=== PATIENT | female | born 1935 | race Caucasian/White ===

== ENCOUNTER 2021-07-22 10:27 | Inpatient (IN) ==
[2021-07-22] MEDS ORDERED: Ipratropium/Albuterol Neb 3 ML IH PRN (14:49)
[2021-07-22] MEDS ORDERED: Acetaminophen 325 MG TABLET PO PRN (14:52)
[2021-07-22] MEDS: Gabapentin 100 MG CAPSULE PO SCH ×2 (16:37→20:25)
[2021-07-22] MEDS: Melatonin 3 MG TABLET PO SCH (20:25)
[2021-07-22] MEDS: Cefdinir 300 MG CAPSULE PO SCH (20:25)
[2021-07-23 07:26] LABS: Basophils % 0.3 %; Eosinophils # 0.2 K/mcL (0.0-0.6); Eosinophils % 1.6 %; Hematocrit 29.9 % (35.3-44.9); Hemoglobin 9.3 g/dL (11.5-15.4); Immature Granulocytes % 1.7 % (0-4); Lymphocytes # 1.3 K/mcL (0.6-4.6); Mean Corpuscular HGB Conc 31.1 g/dL (31.6-35.5); Mean Corpuscular Hemoglobin 27.1 pg (28.0-33.3); Mean Corpuscular Volume 87.2 fL (83.0-100.0); Monocytes # 0.8 K/mcL (0.0-1.3); Monocytes % 7.7 %; Neutrophils # 7.5 K/mcL (1.6-8.9); Platelet Count 443 K/mcL (140-400); Red Blood Count 3.43 M/mcL (3.82-4.97); Segmented Neutrophils % 75.7 %; White Blood Count 9.9 K/mcL (4.3-11.1)
[2021-07-23 08:21] LABS: BUN/Creatinine Ratio 39 (6-26); Blood Urea Nitrogen 27 mg/dL (8-23); Carbon Dioxide 30 mEq/L (23-29); Chloride 101 mEq/L (98-107); Glucose 116 mg/dL (70-105); Osmolality,Calculated 288 (280-300); Potassium 4.3 mEq/L (3.5-5.1); Sodium 136 mEq/L (136-145); eGFR For African Americans > 60 (> 60); eGFR For Non-African Americans > 60 (> 60)
[2021-07-23] MEDS ORDERED: NON-FORMULARY MEDICATION 1 EACH EACH (Mirabegron [Myrbetriq] 50 MG Tab.Er.24h) PO SCH (09:00)
[2021-07-23] MEDS: Cefdinir 300 MG CAPSULE PO SCH ×2 (09:19→21:05)
[2021-07-23] MEDS: Azithromycin 250 MG TABLET PO SCH (09:19)
[2021-07-23] MEDS: *HR* Rivaroxaban 15 MG TABLET PO SCH (09:20)
[2021-07-23] MEDS: Multivit/Ca/Min/Fe/FA 1 TAB TABLET PO SCH (09:20)
[2021-07-23] MEDS: Gabapentin 100 MG CAPSULE PO SCH ×3 (09:20→21:05)
[2021-07-23] MEDS: DilTIAZem CD (24hr) 120 MG CAP.ER.24H PO SCH (09:20)
[2021-07-23] MEDS: Magnesium Oxide 400 MG TABLET PO SCH (09:20)
[2021-07-23] MEDS: Melatonin 3 MG TABLET PO SCH (21:05)
[2021-07-24] MEDS: *HR* Rivaroxaban 15 MG TABLET PO SCH (10:14)
[2021-07-24] MEDS: Gabapentin 100 MG CAPSULE PO SCH ×3 (10:15→21:46)
[2021-07-24] MEDS: Magnesium Oxide 400 MG TABLET PO SCH (10:15)
[2021-07-24] MEDS: DilTIAZem CD (24hr) 120 MG CAP.ER.24H PO SCH (10:15)
[2021-07-24] MEDS: Cefdinir 300 MG CAPSULE PO SCH ×2 (10:15→21:46)
[2021-07-24] MEDS: Multivit/Ca/Min/Fe/FA 1 TAB TABLET PO SCH (10:15)
[2021-07-24] MEDS: Azithromycin 250 MG TABLET PO SCH (10:15)
[2021-07-24] MEDS: polyethylene glycoL 3350 17 GM POWD.PACK PO SCH (10:33)
[2021-07-24] MEDS: Melatonin 3 MG TABLET PO SCH (21:46)
[2021-07-25] MEDS: *HR* Rivaroxaban 15 MG TABLET PO SCH (08:44)
[2021-07-25] MEDS: polyethylene glycoL 3350 17 GM POWD.PACK PO SCH (08:45)
[2021-07-25] MEDS: Azithromycin 250 MG TABLET PO SCH (08:45)
[2021-07-25] MEDS: DilTIAZem CD (24hr) 120 MG CAP.ER.24H PO SCH (08:45)
[2021-07-25] MEDS: Gabapentin 100 MG CAPSULE PO SCH ×3 (08:45→21:31)
[2021-07-25] MEDS: Multivit/Ca/Min/Fe/FA 1 TAB TABLET PO SCH (08:45)
[2021-07-25] MEDS: Magnesium Oxide 400 MG TABLET PO SCH (08:45)
[2021-07-25] MEDS: Cefdinir 300 MG CAPSULE PO SCH ×2 (08:46→21:31)
[2021-07-25] MEDS: Melatonin 3 MG TABLET PO SCH (21:30)
[2021-07-26] MEDS: polyethylene glycoL 3350 17 GM POWD.PACK PO SCH (10:37)
[2021-07-26] MEDS: Gabapentin 100 MG CAPSULE PO SCH ×3 (10:38→21:19)
[2021-07-26] MEDS: *HR* Rivaroxaban 15 MG TABLET PO SCH (10:38)
[2021-07-26] MEDS: Multivit/Ca/Min/Fe/FA 1 TAB TABLET PO SCH (10:38)
[2021-07-26] MEDS: Magnesium Oxide 400 MG TABLET PO SCH (10:38)
[2021-07-26] MEDS: DilTIAZem CD (24hr) 120 MG CAP.ER.24H PO SCH (10:38)
[2021-07-26] MEDS: Cefdinir 300 MG CAPSULE PO SCH ×2 (10:38→21:19)
[2021-07-26] MEDS: Melatonin 3 MG TABLET PO SCH (21:19)
[2021-07-27] MEDS ORDERED: Benzonatate 100 MG CAPSULE PO PRN (01:27)
[2021-07-27] MEDS: *HR* Rivaroxaban 15 MG TABLET PO SCH (10:56)
[2021-07-27] MEDS: Multivit/Ca/Min/Fe/FA 1 TAB TABLET PO SCH (10:57)
[2021-07-27] MEDS: Magnesium Oxide 400 MG TABLET PO SCH (10:57)
[2021-07-27] MEDS: DilTIAZem CD (24hr) 120 MG CAP.ER.24H PO SCH (10:57)
[2021-07-27] MEDS: polyethylene glycoL 3350 17 GM POWD.PACK PO SCH (10:57)
[2021-07-27] MEDS: Gabapentin 100 MG CAPSULE PO SCH ×3 (10:57→20:59)
[2021-07-27] MEDS: Melatonin 3 MG TABLET PO SCH (20:59)
[2021-07-28] MEDS: Multivit/Ca/Min/Fe/FA 1 TAB TABLET PO SCH (10:21)
[2021-07-28] MEDS: *HR* Rivaroxaban 15 MG TABLET PO SCH (10:21)
[2021-07-28] MEDS: Magnesium Oxide 400 MG TABLET PO SCH (10:22)
[2021-07-28] MEDS: Gabapentin 100 MG CAPSULE PO SCH ×3 (10:22→21:40)
[2021-07-28] MEDS: DilTIAZem CD (24hr) 120 MG CAP.ER.24H PO SCH (10:22)
[2021-07-28] MEDS: Sennosides/Docusate Sodium TABLET PO SCH ×2 (10:27→21:40)
[2021-07-28] MEDS: polyethylene glycoL 3350 17 GM POWD.PACK PO SCH (16:37)
[2021-07-28] MEDS: Artificial Tears SOLN 15 ML BOTTLE BOTH EYES PRN (17:52)
[2021-07-28] MEDS: Melatonin 3 MG TABLET PO SCH (21:40)
[2021-07-29] MEDS: Magnesium Oxide 400 MG TABLET PO SCH (11:23)
[2021-07-29] MEDS: Sennosides/Docusate Sodium TABLET PO SCH ×2 (11:23→21:08)
[2021-07-29] MEDS: DilTIAZem CD (24hr) 120 MG CAP.ER.24H PO SCH (11:23)
[2021-07-29] MEDS: Multivit/Ca/Min/Fe/FA 1 TAB TABLET PO SCH (11:24)
[2021-07-29] MEDS: Gabapentin 100 MG CAPSULE PO SCH ×3 (11:24→21:07)
[2021-07-29] MEDS: *HR* Rivaroxaban 15 MG TABLET PO SCH (11:24)
[2021-07-29] MEDS: Artificial Tears SOLN 15 ML BOTTLE BOTH EYES PRN (16:32)
[2021-07-29] MEDS: Acetaminophen 325 MG TABLET PO PRN (21:07)
[2021-07-29] MEDS: Melatonin 3 MG TABLET PO SCH (21:08)
[2021-07-30 09:11] LABS: Hematocrit 28.9 % (35.3-44.9); Hemoglobin 8.7 g/dL (11.5-15.4); Mean Corpuscular HGB Conc 30.1 g/dL (31.6-35.5); Mean Corpuscular Hemoglobin 27.1 pg (28.0-33.3); Mean Platelet Volume 8.8 fL (9.4-12.4); Platelet Count 532 K/mcL (140-400); Red Blood Count 3.21 M/mcL (3.82-4.97); Red Cell Distribution Width 14.4 % (11.5-14.5)
[2021-07-30] MEDS: Gabapentin 100 MG CAPSULE PO SCH ×3 (09:40→22:36)
[2021-07-30] MEDS: DilTIAZem CD (24hr) 120 MG CAP.ER.24H PO SCH (09:40)
[2021-07-30] MEDS: Magnesium Oxide 400 MG TABLET PO SCH (09:40)
[2021-07-30] MEDS: Sennosides/Docusate Sodium TABLET PO SCH ×2 (09:40→22:36)
[2021-07-30] MEDS: Multivit/Ca/Min/Fe/FA 1 TAB TABLET PO SCH (09:41)
[2021-07-30] MEDS: *HR* Rivaroxaban 15 MG TABLET PO SCH (09:41)
[2021-07-30 10:11] LABS: BUN/Creatinine Ratio 29 (6-26); Blood Urea Nitrogen 25 mg/dL (8-23); Calcium 9.5 mg/dL (8.6-10.3); Carbon Dioxide 27 mEq/L (23-29); Chloride 99 mEq/L (98-107); Glucose 233 mg/dL (70-105); Osmolality,Calculated 292 (280-300); Potassium 4.5 mEq/L (3.5-5.1); Sodium 135 mEq/L (136-145); eGFR For African Americans > 60 (> 60); eGFR For Non-African Americans > 60 (> 60)
[2021-07-30] MEDS: Acetaminophen 325 MG TABLET PO PRN (11:05)
[2021-07-30] MEDS: Melatonin 3 MG TABLET PO SCH (22:36)
[2021-07-31] MEDS: Sennosides/Docusate Sodium TABLET PO SCH ×2 (10:18→21:37)
[2021-07-31] MEDS: *HR* Rivaroxaban 15 MG TABLET PO SCH (10:19)
[2021-07-31] MEDS: Gabapentin 100 MG CAPSULE PO SCH ×3 (10:19→21:36)
[2021-07-31] MEDS: Magnesium Oxide 400 MG TABLET PO SCH (10:19)
[2021-07-31] MEDS: Multivit/Ca/Min/Fe/FA 1 TAB TABLET PO SCH (10:19)
[2021-07-31] MEDS: DilTIAZem CD (24hr) 120 MG CAP.ER.24H PO SCH (10:19)
[2021-07-31] MEDS: Acetaminophen 325 MG TABLET PO PRN (15:42)
[2021-07-31] MEDS: Megestrol Acetate 400 MG/10 ML UDC PO SCH (18:40)
[2021-07-31] MEDS: Artificial Tears SOLN 15 ML BOTTLE BOTH EYES PRN (18:59)
[2021-07-31] MEDS: Melatonin 3 MG TABLET PO SCH (21:36)
[2021-08-01] MEDS: Magnesium Oxide 400 MG TABLET PO SCH (08:59)
[2021-08-01] MEDS: *HR* Rivaroxaban 15 MG TABLET PO SCH (08:59)
[2021-08-01] MEDS: Multivit/Ca/Min/Fe/FA 1 TAB TABLET PO SCH (08:59)
[2021-08-01] MEDS: Sennosides/Docusate Sodium TABLET PO SCH ×2 (08:59→19:55)
[2021-08-01] MEDS: Megestrol Acetate 400 MG/10 ML UDC PO SCH (09:00)
[2021-08-01] MEDS: Gabapentin 100 MG CAPSULE PO SCH ×3 (09:00→19:54)
[2021-08-01] MEDS: DilTIAZem CD (24hr) 120 MG CAP.ER.24H PO SCH (09:00)
[2021-08-01] MEDS: Acetaminophen 325 MG TABLET PO PRN (10:51)
[2021-08-01] MEDS: Loratadine 10 MG TABLET PO SCH (14:34)
[2021-08-01] MEDS: Melatonin 3 MG TABLET PO SCH (19:54)
[2021-08-02] MEDS: *HR* Rivaroxaban 15 MG TABLET PO SCH (09:01)
[2021-08-02] MEDS: Multivit/Ca/Min/Fe/FA 1 TAB TABLET PO SCH (09:01)
[2021-08-02] MEDS: DilTIAZem CD (24hr) 120 MG CAP.ER.24H PO SCH (09:01)
[2021-08-02] MEDS: Sennosides/Docusate Sodium TABLET PO SCH ×2 (09:01→21:34)
[2021-08-02] MEDS: Megestrol Acetate 400 MG/10 ML UDC PO SCH (09:01)
[2021-08-02] MEDS: Magnesium Oxide 400 MG TABLET PO SCH (09:01)
[2021-08-02] MEDS: Loratadine 10 MG TABLET PO SCH (09:01)
[2021-08-02] MEDS: Gabapentin 100 MG CAPSULE PO SCH ×3 (09:01→21:34)
[2021-08-02] MEDS: Melatonin 3 MG TABLET PO SCH (21:34)
[2021-08-03] MEDS: Acetaminophen 325 MG TABLET PO PRN (05:49)
[2021-08-03 07:27] LABS: Basophils % 0.4 %; Eosinophils # 0.3 K/mcL (0.0-0.6); Eosinophils % 2.5 %; Hematocrit 23.5 % (35.3-44.9); Hemoglobin 7.1 g/dL (11.5-15.4); Immature Granulocytes % 1.5 % (0-4); Lymphocytes # 1.8 K/mcL (0.6-4.6); Lymphocytes % 16.9 %; Mean Corpuscular HGB Conc 30.2 g/dL (31.6-35.5); Mean Corpuscular Hemoglobin 25.9 pg (28.0-33.3); Mean Corpuscular Volume 85.8 fL (83.0-100.0); Monocytes # 1.2 K/mcL (0.0-1.3); Monocytes % 11.1 %; Platelet Count 421 K/mcL (140-400); Red Blood Count 2.74 M/mcL (3.82-4.97); Red Cell Distribution Width 14.7 % (11.5-14.5); Segmented Neutrophils % 67.6 %; White Blood Count 10.4 K/mcL (4.3-11.1)
[2021-08-03 07:37] LABS: BUN/Creatinine Ratio 23 (6-26); Blood Urea Nitrogen 19 mg/dL (8-23); Calcium 8.8 mg/dL (8.6-10.3); Carbon Dioxide 28 mEq/L (23-29); Chloride 101 mEq/L (98-107); Glucose 88 mg/dL (70-105); Osmolality,Calculated 284 (280-300); Potassium 4.1 mEq/L (3.5-5.1); Sodium 136 mEq/L (136-145); eGFR For African Americans > 60 (> 60); eGFR For Non-African Americans > 60 (> 60)
[2021-08-03] MEDS ORDERED: 0.9 % Sodium Chloride 250 ML IVC SCH (08:30)
[2021-08-03] MEDS: Magnesium Oxide 400 MG TABLET PO SCH (09:07)
[2021-08-03] MEDS: *HR* Rivaroxaban 15 MG TABLET PO SCH (09:07)
[2021-08-03] MEDS: Megestrol Acetate 400 MG/10 ML UDC PO SCH (09:07)
[2021-08-03] MEDS: Gabapentin 100 MG CAPSULE PO SCH ×3 (09:07→20:19)
[2021-08-03] MEDS: Loratadine 10 MG TABLET PO SCH (09:07)
[2021-08-03] MEDS: Multivit/Ca/Min/Fe/FA 1 TAB TABLET PO SCH (09:07)
[2021-08-03] MEDS: Sennosides/Docusate Sodium TABLET PO SCH ×2 (09:07→20:18)
[2021-08-03] MEDS: DilTIAZem CD (24hr) 120 MG CAP.ER.24H PO SCH (09:08)
[2021-08-03 09:16] LABS: Hematocrit 26.8 % (35.3-44.9); Hemoglobin 8.1 g/dL (11.5-15.4)
[2021-08-03 13:35] LABS: Folate > 22.3 ng/mL (3.0-16.0); Vitamin B12 1000 pg/mL (250-1100)
[2021-08-03] MEDS ORDERED: Iron Sucrose Complex 200 MG in 0.9 % Sodium Chloride 100 ML IVPB SCH (16:00)
[2021-08-03] MEDS: Melatonin 3 MG TABLET PO SCH (20:19)
[2021-08-04 08:14] LABS: Hemoglobin 8.7 g/dL (11.5-15.4); Mean Corpuscular HGB Conc 31.1 g/dL (31.6-35.5); Mean Corpuscular Hemoglobin 26.4 pg (28.0-33.3); Mean Corpuscular Volume 84.8 fL (83.0-100.0); Mean Platelet Volume 8.8 fL (9.4-12.4); Platelet Count 428 K/mcL (140-400); Red Cell Distribution Width 14.8 % (11.5-14.5); White Blood Count 12.3 K/mcL (4.3-11.1)
[2021-08-04] MEDS: Sennosides/Docusate Sodium TABLET PO SCH ×2 (08:22→20:27)
[2021-08-04] MEDS: Loratadine 10 MG TABLET PO SCH (08:23)
[2021-08-04] MEDS: Gabapentin 100 MG CAPSULE PO SCH ×3 (08:23→20:27)
[2021-08-04] MEDS: Magnesium Oxide 400 MG TABLET PO SCH (08:23)
[2021-08-04] MEDS: Multivit/Ca/Min/Fe/FA 1 TAB TABLET PO SCH (08:23)
[2021-08-04] MEDS: Megestrol Acetate 400 MG/10 ML UDC PO SCH (08:24)
[2021-08-04] MEDS: DilTIAZem CD (24hr) 120 MG CAP.ER.24H PO SCH (08:24)
[2021-08-04] MEDS: Iron Sucrose Complex 200 MG in 0.9 % Sodium Chloride 100 ML IVPB SCH (12:59)
[2021-08-04] MEDS: Melatonin 3 MG TABLET PO SCH (20:27)
[2021-08-04] MEDS: Simethicone 80 MG TAB.CHEW PO PRN (20:27)
[2021-08-04] MEDS: Ondansetron ODT 4 MG TAB.RAPDIS SL PRN (22:06)
[2021-08-05] MEDS: Gabapentin 100 MG CAPSULE PO SCH ×3 (09:33→20:34)
[2021-08-05] MEDS: Sennosides/Docusate Sodium TABLET PO SCH ×2 (09:33→20:34)
[2021-08-05] MEDS: Multivit/Ca/Min/Fe/FA 1 TAB TABLET PO SCH (09:33)
[2021-08-05] MEDS: Loratadine 10 MG TABLET PO SCH (09:33)
[2021-08-05] MEDS: DilTIAZem CD (24hr) 180 MG CAP.ER.24H PO SCH (09:33)
[2021-08-05] MEDS: *HR* Rivaroxaban 15 MG TABLET PO SCH (09:34)
[2021-08-05] MEDS: Magnesium Oxide 400 MG TABLET PO SCH (09:34)
[2021-08-05] MEDS: Megestrol Acetate 400 MG/10 ML UDC PO SCH (09:36)
[2021-08-05] MEDS: Iron Sucrose Complex 200 MG in 0.9 % Sodium Chloride 100 ML IVPB SCH (16:08)
[2021-08-05] MEDS: Melatonin 3 MG TABLET PO SCH (20:34)
[2021-08-05] MEDS: Simethicone 80 MG TAB.CHEW PO PRN (20:39)
[2021-08-06] MEDS: Megestrol Acetate 400 MG/10 ML UDC PO SCH (08:43)
[2021-08-06] MEDS: Sennosides/Docusate Sodium TABLET PO SCH ×2 (08:43→21:57)
[2021-08-06] MEDS: Loratadine 10 MG TABLET PO SCH (08:44)
[2021-08-06] MEDS: DilTIAZem CD (24hr) 180 MG CAP.ER.24H PO SCH (08:44)
[2021-08-06] MEDS: Multivit/Ca/Min/Fe/FA 1 TAB TABLET PO SCH (08:44)
[2021-08-06] MEDS: *HR* Rivaroxaban 15 MG TABLET PO SCH (08:44)
[2021-08-06] MEDS: Gabapentin 100 MG CAPSULE PO SCH ×3 (08:44→21:57)
[2021-08-06] MEDS: Magnesium Oxide 400 MG TABLET PO SCH (08:45)
[2021-08-06] MEDS: Ipratropium/Albuterol Neb 3 ML IH SCH ×3 (11:02→20:42)
[2021-08-06] MEDS: Iron Sucrose Complex 200 MG in 0.9 % Sodium Chloride 100 ML IVPB SCH (12:21)
[2021-08-06] MEDS: predniSONE 20 MG TABLET PO SCH (12:21)
[2021-08-06] MEDS: Ondansetron ODT 4 MG TAB.RAPDIS SL PRN (18:51)
[2021-08-06] MEDS: Melatonin 3 MG TABLET PO SCH (21:56)
[2021-08-07] MEDS: Ipratropium/Albuterol Neb 3 ML IH SCH ×7 (00:10→23:50)
[2021-08-07 07:16] LABS: Hematocrit 25.4 % (35.3-44.9); Hemoglobin 7.6 g/dL (11.5-15.4); Mean Corpuscular HGB Conc 29.9 g/dL (31.6-35.5); Mean Corpuscular Hemoglobin 26.4 pg (28.0-33.3); Mean Corpuscular Volume 88.2 fL (83.0-100.0); Mean Platelet Volume 9.5 fL (9.4-12.4); Platelet Count 404 K/mcL (140-400); Red Blood Count 2.88 M/mcL (3.82-4.97); Red Cell Distribution Width 15.8 % (11.5-14.5); White Blood Count 19.4 K/mcL (4.3-11.1)
[2021-08-07] MEDS: Gabapentin 100 MG CAPSULE PO SCH ×3 (11:15→20:27)
[2021-08-07] MEDS: predniSONE 20 MG TABLET PO SCH (11:16)
[2021-08-07] MEDS: DilTIAZem CD (24hr) 180 MG CAP.ER.24H PO SCH (11:16)
[2021-08-07] MEDS: Sennosides/Docusate Sodium TABLET PO SCH ×2 (11:16→20:27)
[2021-08-07] MEDS: Megestrol Acetate 400 MG/10 ML UDC PO SCH (11:16)
[2021-08-07] MEDS: Loratadine 10 MG TABLET PO SCH (11:16)
[2021-08-07] MEDS: Multivit/Ca/Min/Fe/FA 1 TAB TABLET PO SCH (11:16)
[2021-08-07] MEDS: *HR* Rivaroxaban 15 MG TABLET PO SCH (11:16)
[2021-08-07] MEDS: Magnesium Oxide 400 MG TABLET PO SCH (11:16)
[2021-08-07] MEDS: Melatonin 3 MG TABLET PO SCH (20:27)
[2021-08-08] MEDS: Ipratropium/Albuterol Neb 3 ML IH SCH ×5 (04:17→20:05)
[2021-08-08 06:02] LABS: Hematocrit 23.3 % (35.3-44.9); Mean Corpuscular Hemoglobin 26.4 pg (28.0-33.3); Mean Corpuscular Volume 87.9 fL (83.0-100.0); Mean Platelet Volume 9.1 fL (9.4-12.4); Platelet Count 393 K/mcL (140-400); Red Blood Count 2.65 M/mcL (3.82-4.97); Red Cell Distribution Width 16.3 % (11.5-14.5); White Blood Count 19.2 K/mcL (4.3-11.1)
[2021-08-08] MEDS ORDERED: 0.9 % Sodium Chloride 250 ML ONE ×2 (09:55→10:35)
[2021-08-08] MEDS: Megestrol Acetate 400 MG/10 ML UDC PO SCH (10:55)
[2021-08-08] MEDS: DilTIAZem CD (24hr) 180 MG CAP.ER.24H PO SCH (10:55)
[2021-08-08] MEDS: Sennosides/Docusate Sodium TABLET PO SCH ×2 (10:55→22:23)
[2021-08-08] MEDS: Magnesium Oxide 400 MG TABLET PO SCH (10:55)
[2021-08-08] MEDS: Multivit/Ca/Min/Fe/FA 1 TAB TABLET PO SCH (10:55)
[2021-08-08] MEDS: Gabapentin 100 MG CAPSULE PO SCH ×3 (10:56→22:23)
[2021-08-08] MEDS: predniSONE 20 MG TABLET PO SCH (10:56)
[2021-08-08] MEDS: Loratadine 10 MG TABLET PO SCH (10:56)
[2021-08-08 21:54] LABS: Hematocrit 31.5 % (35.3-44.9); Hemoglobin 9.9 g/dL (11.5-15.4)
[2021-08-08] MEDS: Melatonin 3 MG TABLET PO SCH (22:22)
[2021-08-09] MEDS: Ipratropium/Albuterol Neb 3 ML IH SCH ×4 (00:05→11:30)
[2021-08-09 07:21] VITALS: TEMP 97.9
[2021-08-09] MEDS: Megestrol Acetate 400 MG/10 ML UDC PO SCH (10:03)
[2021-08-09] MEDS: Magnesium Oxide 400 MG TABLET PO SCH (10:04)
[2021-08-09] MEDS: Gabapentin 100 MG CAPSULE PO SCH ×2 (10:04→15:36)
[2021-08-09] MEDS: Sennosides/Docusate Sodium TABLET PO SCH (10:04)
[2021-08-09] MEDS: DilTIAZem CD (24hr) 180 MG CAP.ER.24H PO SCH (10:05)
[2021-08-09] MEDS: Loratadine 10 MG TABLET PO SCH (10:05)
[2021-08-09] MEDS: Multivit/Ca/Min/Fe/FA 1 TAB TABLET PO SCH (10:05)
[2021-08-09] MEDS ORDERED: Ipratropium/Albuterol Neb 3 ML IH PRN (11:42)
[2021-08-09 14:29] VITALS: BP 118/50; PULSE 63; RESP 16; O2SAT 98
== END 2021-08-09 16:05 | disposition home health service (06) | DRG 193 ==
LOC: INPPIK 16:14
PROVIDERS: ADMIT Family Medicine; ATTEND Family Medicine

== ENCOUNTER 2021-09-06 17:48 | Inpatient (IN) ==
[2021-09-06 22:17] LABS: Basophils # 0.1 K/mcL (0.0-0.2); Basophils % 0.6 %; Eosinophils # 0.1 K/mcL (0.0-0.6); Eosinophils % 0.9 %; Immature Granulocytes % 0.5 % (0-4); Lymphocytes # 2.5 K/mcL (0.6-4.6); Lymphocytes % 24.8 %; Mean Corpuscular Hemoglobin 26.1 pg (28.0-33.3); Mean Corpuscular Volume 89.9 fL (83.0-100.0); Mean Platelet Volume 9.9 fL (9.4-12.4); Monocytes # 0.6 K/mcL (0.0-1.3); Monocytes % 5.6 %; Neutrophils # 6.9 K/mcL (1.6-8.9); Platelet Count 314 K/mcL (140-400); Red Blood Count 3.45 M/mcL (3.82-4.97); Red Cell Distribution Width 18.6 % (11.5-14.5); Segmented Neutrophils % 67.6 %; White Blood Count 10.2 K/mcL (4.3-11.1)
[2021-09-06 22:29] LABS: BUN/Creatinine Ratio 19 (6-26); Blood Urea Nitrogen 19 mg/dL (8-23); Calcium 8.8 mg/dL (8.6-10.3); Carbon Dioxide 26 mEq/L (23-29); Chloride 107 mEq/L (98-107); Glucose 97 mg/dL (70-105); Osmolality,Calculated 294 (280-300); Potassium 4.6 mEq/L (3.5-5.1); Sodium 141 mEq/L (136-145); eGFR For African Americans > 60 (> 60); eGFR For Non-African Americans 52 (> 60)
[2021-09-06 22:45] LABS: Troponin I < 0.03 ng/mL (< 0.04)
[2021-09-06 23:25] LABS: Bilirubin,Urine Small (Negative); Blood,Urine Negative (Negative); Clarity,Urine Clear (Clear); Color,Urine Yellow (Yellow); Glucose,Urine (UA) Normal (Normal); Ketones,Urine Negative (Negative); Leukocyte Esterase,Urine Trace (Negative); Nitrite,Urine Negative (Negative); PH,Urine 7.5 pH Units (5.0-8.0); Protein,Urine Trace mg/dL (Neg-Trace); Specific Gravity,Urine 1.015 (1.010-1.025); Urobilinogen,Urine Normal (Normal)
[2021-09-07] MEDS ORDERED: 0.9 % Sodium Chloride 1,000 ML IV ONE ×2 (01:21→02:50)
[2021-09-07] MEDS: Piperacillin/Tazobactam 3.375 GM in 0.9 % Sodium Chloride Mini Bag 100 ML IVPB SCH ×3 (02:38→18:33)
[2021-09-07] MEDS ORDERED: Acetaminophen 325 MG TABLET PO PRN (08:55)
[2021-09-07] MEDS ORDERED: Ondansetron 4 MG/2 ML VIAL IVP PRN (08:55)
[2021-09-07] MEDS ORDERED: Naloxone 0.4 MG/ML INJ IVP PRN (08:55)
[2021-09-07] MEDS ORDERED: DilTIAZem CD (24hr) 120 MG CAP.ER.24H PO SCH (09:00)
[2021-09-07] MEDS: Gabapentin 100 MG CAPSULE PO SCH ×3 (10:20→20:26)
[2021-09-07] MEDS: Magnesium Oxide 400 MG TABLET PO SCH (10:20)
[2021-09-07] MEDS: Megestrol Acetate 400 MG/10 ML UDC PO SCH (10:26)
[2021-09-07] MEDS: Multivit/Ca/Min/Fe/FA 1 TAB TABLET PO SCH (10:35)
[2021-09-07] MEDS: Ipratropium/Albuterol Neb 3 ML IH SCH ×4 (11:32→23:30)
[2021-09-07] MEDS ORDERED: Acetaminophen 325 MG TABLET PO SCH (12:00)
[2021-09-07] MEDS ORDERED: DilTIAZem CD (24hr) 120 MG CAP.ER.24H PO ONE (12:45)
[2021-09-07] MEDS ORDERED: Nitroglycerin 0.4 MG TAB.SUBL SL PRN (12:53)
[2021-09-07] MEDS: Aspirin Enteric Coated 81 MG Tablet PO SCH (15:40)
[2021-09-07 16:53] LABS: Adenovirus Not Detected (Not Detect); Bordetella Pertussis Not Detected (Not Detect); Chlamydophila pneumoniae Not Detected (Not Detect); Coronavirus 229E Not Detected (Not Detect); Coronavirus HKU1 Not Detected (Not Detect); Coronavirus NL63 Not Detected (Not Detect); Coronavirus OC43 Not Detected (Not Detect); Human Metapneumovirus Not Detected (Not Detect); Human Rhinovirus/Enterovirus Not Detected (Not Detect); Influenza A Subtype 2009 H1 Not Detected (Not Detect); Influenza B Not Detected (Not Detect); Mycoplasma pneumoniae Not Detected (Not Detect); Parainfluenza Virus 1 Not Detected (Not Detect); Parainfluenza Virus 2 Not Detected (Not Detect); Parainfluenza Virus 3 Not Detected (Not Detect); Parainfluenza Virus 4 Not Detected (Not Detect); Respiratory Syncytial Virus Not Detected (Not Detect); SARS-CoV-2 Not Detected (Not Detect)
[2021-09-07] MEDS: Mirtazapine 15 MG TABLET PO SCH (20:25)
[2021-09-07] MEDS: Melatonin 3 MG TABLET PO SCH (20:25)
[2021-09-08] MEDS: Piperacillin/Tazobactam 3.375 GM in 0.9 % Sodium Chloride Mini Bag 100 ML IVPB SCH ×3 (02:02→17:21)
[2021-09-08] MEDS: Ipratropium/Albuterol Neb 3 ML IH SCH ×5 (04:14→20:35)
[2021-09-08 07:44] LABS: Hematocrit 27.9 % (35.3-44.9); Mean Corpuscular HGB Conc 28.7 g/dL (31.6-35.5); Mean Corpuscular Hemoglobin 25.8 pg (28.0-33.3); Mean Platelet Volume 10.2 fL (9.4-12.4); Platelet Count 262 K/mcL (140-400); Red Cell Distribution Width 18.7 % (11.5-14.5); White Blood Count 7.9 K/mcL (4.3-11.1)
[2021-09-08 07:50] LABS: BUN/Creatinine Ratio 19 (6-26); Blood Urea Nitrogen 20 mg/dL (8-23); Calcium 8.3 mg/dL (8.6-10.3); Carbon Dioxide 27 mEq/L (23-29); Chloride 107 mEq/L (98-107); Glucose 89 mg/dL (70-105); Magnesium 1.8 mg/dL (1.6-2.6); Osmolality,Calculated 292 (280-300); Potassium 3.9 mEq/L (3.5-5.1); Sodium 140 mEq/L (136-145); eGFR For African Americans > 60 (> 60); eGFR For Non-African Americans 50 (> 60)
[2021-09-08] MEDS: Gabapentin 100 MG CAPSULE PO SCH ×3 (08:01→20:26)
[2021-09-08] MEDS: Aspirin Enteric Coated 81 MG Tablet PO SCH (08:01)
[2021-09-08] MEDS: Magnesium Oxide 400 MG TABLET PO SCH (08:01)
[2021-09-08] MEDS: Megestrol Acetate 400 MG/10 ML UDC PO SCH (08:01)
[2021-09-08] MEDS: Multivit/Ca/Min/Fe/FA 1 TAB TABLET PO SCH (08:02)
[2021-09-08] MEDS: DilTIAZem CD (24hr) 120 MG CAP.ER.24H PO SCH (08:11)
[2021-09-08] MEDS: Furosemide 20 MG/2 ML VIAL IVP SCH (13:12)
[2021-09-08] MEDS: Mirtazapine 15 MG TABLET PO SCH (20:26)
[2021-09-08] MEDS: Melatonin 3 MG TABLET PO SCH (20:26)
[2021-09-09] MEDS: Ipratropium/Albuterol Neb 3 ML IH SCH ×6 (00:21→20:45)
[2021-09-09] MEDS: Piperacillin/Tazobactam 3.375 GM in 0.9 % Sodium Chloride Mini Bag 100 ML IVPB SCH ×3 (02:36→20:27)
[2021-09-09 07:30] LABS: Hematocrit 25.6 % (35.3-44.9); Hemoglobin 7.2 g/dL (11.5-15.4); Mean Corpuscular HGB Conc 28.1 g/dL (31.6-35.5); Mean Corpuscular Hemoglobin 25.5 pg (28.0-33.3); Mean Corpuscular Volume 90.8 fL (83.0-100.0); Mean Platelet Volume 10.1 fL (9.4-12.4); Platelet Count 263 K/mcL (140-400); Red Blood Count 2.82 M/mcL (3.82-4.97); Red Cell Distribution Width 18.8 % (11.5-14.5)
[2021-09-09 07:56] LABS: BUN/Creatinine Ratio 19 (6-26); Blood Urea Nitrogen 19 mg/dL (8-23); Calcium 7.8 mg/dL (8.6-10.3); Carbon Dioxide 28 mEq/L (23-29); Chloride 109 mEq/L (98-107); Glucose 99 mg/dL (70-105); Osmolality,Calculated 298 (280-300); Potassium 3.6 mEq/L (3.5-5.1); Sodium 143 mEq/L (136-145); eGFR For African Americans > 60 (> 60); eGFR For Non-African Americans 52 (> 60)
[2021-09-09] MEDS: Furosemide 20 MG/2 ML VIAL IVP SCH (09:31)
[2021-09-09] MEDS: Megestrol Acetate 400 MG/10 ML UDC PO SCH (09:31)
[2021-09-09] MEDS: Multivit/Ca/Min/Fe/FA 1 TAB TABLET PO SCH (09:32)
[2021-09-09] MEDS: Aspirin Enteric Coated 81 MG Tablet PO SCH (09:32)
[2021-09-09] MEDS: DilTIAZem CD (24hr) 120 MG CAP.ER.24H PO SCH (09:32)
[2021-09-09] MEDS: Magnesium Oxide 400 MG TABLET PO SCH (09:32)
[2021-09-09] MEDS: Gabapentin 100 MG CAPSULE PO SCH ×3 (09:32→20:26)
[2021-09-09] MEDS: Iron Sucrose Complex 200 MG in 0.9 % Sodium Chloride 100 ML IVPB SCH (13:42)
[2021-09-09] MEDS ORDERED: 0.9 % Sodium Chloride 250 ML ONE (17:08)
[2021-09-09] MEDS: Melatonin 3 MG TABLET PO SCH (20:26)
[2021-09-09] MEDS: Mirtazapine 15 MG TABLET PO SCH (20:26)
[2021-09-10] MEDS: Ipratropium/Albuterol Neb 3 ML IH SCH ×6 (00:38→20:17)
[2021-09-10 05:17] LABS: Hematocrit 29.1 % (35.3-44.9); Hemoglobin 8.5 g/dL (11.5-15.4); Mean Corpuscular HGB Conc 29.2 g/dL (31.6-35.5); Mean Corpuscular Hemoglobin 26.2 pg (28.0-33.3); Mean Corpuscular Volume 89.8 fL (83.0-100.0); Mean Platelet Volume 10.4 fL (9.4-12.4); Platelet Count 284 K/mcL (140-400); Red Blood Count 3.24 M/mcL (3.82-4.97); Red Cell Distribution Width 18.6 % (11.5-14.5); White Blood Count 10.6 K/mcL (4.3-11.1)
[2021-09-10 05:32] LABS: BUN/Creatinine Ratio 20 (6-26); Blood Urea Nitrogen 17 mg/dL (8-23); Calcium 7.7 mg/dL (8.6-10.3); Carbon Dioxide 27 mEq/L (23-29); Chloride 106 mEq/L (98-107); Glucose 108 mg/dL (70-105); Osmolality,Calculated 294 (280-300); Potassium 3.5 mEq/L (3.5-5.1); Sodium 141 mEq/L (136-145); eGFR For African Americans > 60 (> 60); eGFR For Non-African Americans > 60 (> 60)
[2021-09-10] MEDS: Piperacillin/Tazobactam 3.375 GM in 0.9 % Sodium Chloride Mini Bag 100 ML IVPB SCH ×3 (06:20→20:25)
[2021-09-10] MEDS: Megestrol Acetate 400 MG/10 ML UDC PO SCH (09:08)
[2021-09-10] MEDS: Furosemide 20 MG/2 ML VIAL IVP SCH ×2 (09:08→20:20)
[2021-09-10] MEDS: DilTIAZem CD (24hr) 120 MG CAP.ER.24H PO SCH (09:09)
[2021-09-10] MEDS: Magnesium Oxide 400 MG TABLET PO SCH (09:09)
[2021-09-10] MEDS: Multivit/Ca/Min/Fe/FA 1 TAB TABLET PO SCH (09:09)
[2021-09-10] MEDS: Aspirin Enteric Coated 81 MG Tablet PO SCH (09:09)
[2021-09-10] MEDS: Gabapentin 100 MG CAPSULE PO SCH ×3 (09:09→20:21)
[2021-09-10] MEDS: Iron Sucrose Complex 200 MG in 0.9 % Sodium Chloride 100 ML IVPB SCH (10:19)
[2021-09-10] MEDS: Melatonin 3 MG TABLET PO SCH (20:21)
[2021-09-10] MEDS: Mirtazapine 15 MG TABLET PO SCH (20:21)
[2021-09-11] MEDS: Ipratropium/Albuterol Neb 3 ML IH SCH ×5 (00:35→16:08)
[2021-09-11] MEDS: Piperacillin/Tazobactam 3.375 GM in 0.9 % Sodium Chloride Mini Bag 100 ML IVPB SCH ×3 (08:05→15:42)
[2021-09-11] MEDS: Furosemide 20 MG/2 ML VIAL IVP SCH (08:06)
[2021-09-11] MEDS: Megestrol Acetate 400 MG/10 ML UDC PO SCH (08:06)
[2021-09-11] MEDS: Gabapentin 100 MG CAPSULE PO SCH ×2 (08:07→15:42)
[2021-09-11] MEDS: DilTIAZem CD (24hr) 120 MG CAP.ER.24H PO SCH (08:07)
[2021-09-11] MEDS: Magnesium Oxide 400 MG TABLET PO SCH (08:07)
[2021-09-11] MEDS: Aspirin Enteric Coated 81 MG Tablet PO SCH (08:07)
[2021-09-11] MEDS: Multivit/Ca/Min/Fe/FA 1 TAB TABLET PO SCH (08:07)
[2021-09-11 10:21] VITALS: BP 121/72; PULSE 92; TEMP 97.6
[2021-09-11] MEDS: Iron Sucrose Complex 200 MG in 0.9 % Sodium Chloride 100 ML IVPB SCH (12:50)
[2021-09-11 16:40] VITALS: RESP 24; O2SAT 89
== END 2021-09-11 18:00 | disposition left against medical advice (07) | DRG 177 ==
LOC: EMEROOPIK 17:48 → INPPIK 09-07 08:01 → INTOOBSV 09-07 08:01 → INPPIK 09-07 08:59
PROVIDERS: ADMIT Internal Medicine; ATTEND Internal Medicine

== ENCOUNTER 2021-09-27 15:45 | Inpatient (IN) ==
[2021-09-27] MEDS ORDERED: NON-FORMULARY MEDICATION 1 EACH EACH (Alendronate Sodium 70 MG Tablet) PO SCH (19:45)
[2021-09-27] MEDS: Gabapentin 100 MG CAPSULE PO SCH (21:35)
[2021-09-27] MEDS: Mirtazapine 15 MG TABLET PO SCH (21:36)
[2021-09-27] MEDS: Melatonin 3 MG TABLET PO SCH (21:36)
[2021-09-28] MEDS: *HR* Enoxaparin 40 MG/0.4 ML SYRINGE SQ SCH (05:53)
[2021-09-28 07:11] LABS: Basophils # 0.1 K/mcL (0.0-0.2); Basophils % 0.3 %; Eosinophils # 0.1 K/mcL (0.0-0.6); Eosinophils % 0.3 %; Hematocrit 28.6 % (35.3-44.9); Hemoglobin 8.7 g/dL (11.5-15.4); Immature Granulocytes % 0.5 % (0-4); Lymphocytes # 1.6 K/mcL (0.6-4.6); Lymphocytes % 7.2 %; Mean Corpuscular HGB Conc 30.4 g/dL (31.6-35.5); Mean Corpuscular Hemoglobin 25.6 pg (28.0-33.3); Mean Corpuscular Volume 84.1 fL (83.0-100.0); Mean Platelet Volume 9.8 fL (9.4-12.4); Monocytes # 0.9 K/mcL (0.0-1.3); Monocytes % 3.9 %; Neutrophils # 19.4 K/mcL (1.6-8.9); Platelet Count 458 K/mcL (140-400); Red Cell Distribution Width 18.7 % (11.5-14.5); Segmented Neutrophils % 87.8 %; White Blood Count 22.1 K/mcL (4.3-11.1)
[2021-09-28 07:50] LABS: BUN/Creatinine Ratio 27 (6-26); Blood Urea Nitrogen 23 mg/dL (8-23); Calcium 8.7 mg/dL (8.6-10.3); Carbon Dioxide 31 mEq/L (23-29); Chloride 100 mEq/L (98-107); Glucose 121 mg/dL (70-105); Osmolality,Calculated 291 (280-300); Potassium 3.7 mEq/L (3.5-5.1); Sodium 138 mEq/L (136-145); eGFR For African Americans > 60 (> 60); eGFR For Non-African Americans > 60 (> 60)
[2021-09-28] MEDS: Budesonide/Formoterol 80/4.5 1 PUFF INH IH SCH ×2 (08:36→22:29)
[2021-09-28] MEDS: Aspirin Enteric Coated 81 MG Tablet PO SCH (08:50)
[2021-09-28] MEDS: Furosemide 20 MG TABLET PO SCH (08:50)
[2021-09-28] MEDS: Multivit/Ca/Min/Fe/FA 1 TAB TABLET PO SCH (08:50)
[2021-09-28] MEDS: Gabapentin 100 MG CAPSULE PO SCH ×3 (08:50→21:06)
[2021-09-28] MEDS: DilTIAZem CD (24hr) 120 MG CAP.ER.24H PO SCH (08:51)
[2021-09-28] MEDS: Magnesium Oxide 400 MG TABLET PO SCH (08:51)
[2021-09-28] MEDS: Acetaminophen 325 MG TABLET PO PRN (08:51)
[2021-09-28] MEDS: Megestrol Acetate 400 MG/10 ML UDC PO SCH (08:52)
[2021-09-28] MEDS: Mirabegron [Myrbetriq] 50 MG Tab.Er.24h PO SCH (08:53)
[2021-09-28] MEDS: Ipratropium/Albuterol Neb 3 ML IH PRN ×2 (14:32→22:29)
[2021-09-28 14:49] LABS: ABG Base Excess 3 mEq/L (-2 to 3); ABG HCO3 28 mEq/L (21-27); ABG Oxygen Saturation 97 % (95-98); ABG PCO2 42 mmHg (35-45); ABG PH 7.43 pH Units (7.32-7.45); ABG PO2 88 mmHg (85-104); ABG TCO2 29 mEq/L (20-26)
[2021-09-28] MEDS: Piperacillin/Tazobactam 3.375 GM in 0.9 % Sodium Chloride Mini Bag 100 ML IVPB SCH (17:44)
[2021-09-28] MEDS: Mirtazapine 15 MG TABLET PO SCH (21:07)
[2021-09-28] MEDS: Melatonin 3 MG TABLET PO SCH (21:07)
[2021-09-29] MEDS: Piperacillin/Tazobactam 3.375 GM in 0.9 % Sodium Chloride Mini Bag 100 ML IVPB SCH ×3 (05:40→21:54)
[2021-09-29 07:33] LABS: Basophils % 0.3 %; Eosinophils # 0.2 K/mcL (0.0-0.6); Eosinophils % 1.3 %; Hematocrit 26.3 % (35.3-44.9); Hemoglobin 7.9 g/dL (11.5-15.4); Immature Granulocytes % 0.4 % (0-4); Lymphocytes # 1.6 K/mcL (0.6-4.6); Mean Corpuscular Hemoglobin 25.1 pg (28.0-33.3); Mean Corpuscular Volume 83.5 fL (83.0-100.0); Mean Platelet Volume 9.5 fL (9.4-12.4); Monocytes # 0.7 K/mcL (0.0-1.3); Monocytes % 4.8 %; Neutrophils # 11.8 K/mcL (1.6-8.9); Platelet Count 395 K/mcL (140-400); Red Blood Count 3.15 M/mcL (3.82-4.97); Red Cell Distribution Width 18.7 % (11.5-14.5); Segmented Neutrophils % 82.2 %; White Blood Count 14.3 K/mcL (4.3-11.1)
[2021-09-29 08:03] LABS: BUN/Creatinine Ratio 30 (6-26); Blood Urea Nitrogen 24 mg/dL (8-23); Calcium 8.4 mg/dL (8.6-10.3); Carbon Dioxide 30 mEq/L (23-29); Chloride 102 mEq/L (98-107); Glucose 91 mg/dL (70-105); Magnesium 1.8 mg/dL (1.6-2.6); Osmolality,Calculated 294 (280-300); Potassium 3.6 mEq/L (3.5-5.1); Sodium 140 mEq/L (136-145); eGFR For African Americans > 60 (> 60); eGFR For Non-African Americans > 60 (> 60)
[2021-09-29] MEDS: Budesonide/Formoterol 80/4.5 1 PUFF INH IH SCH ×2 (08:29→21:36)
[2021-09-29] MEDS: Ipratropium/Albuterol Neb 3 ML IH PRN (08:29)
[2021-09-29] MEDS: Megestrol Acetate 400 MG/10 ML UDC PO SCH (09:12)
[2021-09-29] MEDS: Aspirin Enteric Coated 81 MG Tablet PO SCH (09:12)
[2021-09-29] MEDS: DilTIAZem CD (24hr) 120 MG CAP.ER.24H PO SCH (09:13)
[2021-09-29] MEDS: Furosemide 20 MG TABLET PO SCH (09:13)
[2021-09-29] MEDS: Gabapentin 100 MG CAPSULE PO SCH ×3 (09:13→21:56)
[2021-09-29] MEDS: Mirabegron [Myrbetriq] 50 MG Tab.Er.24h PO SCH (09:13)
[2021-09-29] MEDS: Magnesium Oxide 400 MG TABLET PO SCH (09:13)
[2021-09-29] MEDS: Multivit/Ca/Min/Fe/FA 1 TAB TABLET PO SCH (09:13)
[2021-09-29] MEDS: Melatonin 3 MG TABLET PO SCH (21:55)
[2021-09-29] MEDS: Mirtazapine 15 MG TABLET PO SCH (21:55)
[2021-09-30] MEDS: Piperacillin/Tazobactam 3.375 GM in 0.9 % Sodium Chloride Mini Bag 100 ML IVPB SCH ×3 (05:26→21:08)
[2021-09-30 08:03] LABS: Hematocrit 26.5 % (35.3-44.9); Hemoglobin 8.1 g/dL (11.5-15.4); Mean Corpuscular HGB Conc 30.6 g/dL (31.6-35.5); Mean Corpuscular Hemoglobin 25.2 pg (28.0-33.3); Mean Corpuscular Volume 82.3 fL (83.0-100.0); Mean Platelet Volume 9.2 fL (9.4-12.4); Platelet Count 378 K/mcL (140-400); Red Blood Count 3.22 M/mcL (3.82-4.97); White Blood Count 15.2 K/mcL (4.3-11.1)
[2021-09-30 08:20] LABS: BUN/Creatinine Ratio 24 (6-26); Blood Urea Nitrogen 20 mg/dL (8-23); Calcium 8.3 mg/dL (8.6-10.3); Carbon Dioxide 26 mEq/L (23-29); Chloride 104 mEq/L (98-107); Glucose 106 mg/dL (70-105); Osmolality,Calculated 291 (280-300); Sodium 139 mEq/L (136-145); eGFR For African Americans > 60 (> 60); eGFR For Non-African Americans > 60 (> 60)
[2021-09-30] MEDS: Gabapentin 100 MG CAPSULE PO SCH ×3 (08:50→20:21)
[2021-09-30] MEDS: Multivit/Ca/Min/Fe/FA 1 TAB TABLET PO SCH (08:50)
[2021-09-30] MEDS: Magnesium Oxide 400 MG TABLET PO SCH (08:51)
[2021-09-30] MEDS: Furosemide 20 MG TABLET PO SCH (08:51)
[2021-09-30] MEDS: Megestrol Acetate 400 MG/10 ML UDC PO SCH (08:51)
[2021-09-30] MEDS: DilTIAZem CD (24hr) 120 MG CAP.ER.24H PO SCH (08:51)
[2021-09-30] MEDS: Aspirin Enteric Coated 81 MG Tablet PO SCH (08:51)
[2021-09-30] MEDS: Mirabegron [Myrbetriq] 50 MG Tab.Er.24h PO SCH (08:52)
[2021-09-30] MEDS: Budesonide/Formoterol 80/4.5 1 PUFF INH IH SCH ×2 (09:01→21:24)
[2021-09-30] MEDS: Nystatin POWDER 30 GM BOTTLE TP SCH ×2 (17:18→20:43)
[2021-09-30] MEDS: Mirtazapine 15 MG TABLET PO SCH (20:21)
[2021-09-30] MEDS: Melatonin 3 MG TABLET PO SCH (20:22)
[2021-10-01] MEDS: Piperacillin/Tazobactam 3.375 GM in 0.9 % Sodium Chloride Mini Bag 100 ML IVPB SCH ×2 (05:19→15:54)
[2021-10-01] MEDS: *HR* Enoxaparin 40 MG/0.4 ML SYRINGE SQ SCH (05:20)
[2021-10-01 07:04] LABS: Basophils % 0.4 %; Eosinophils # 0.2 K/mcL (0.0-0.6); Eosinophils % 1.7 %; Hematocrit 26.9 % (35.3-44.9); Hemoglobin 7.9 g/dL (11.5-15.4); Immature Granulocytes % 0.3 % (0-4); Lymphocytes # 1.5 K/mcL (0.6-4.6); Lymphocytes % 15.1 %; Mean Corpuscular HGB Conc 29.4 g/dL (31.6-35.5); Mean Corpuscular Hemoglobin 24.7 pg (28.0-33.3); Mean Corpuscular Volume 84.1 fL (83.0-100.0); Mean Platelet Volume 9.7 fL (9.4-12.4); Monocytes # 0.7 K/mcL (0.0-1.3); Monocytes % 7.1 %; Neutrophils # 7.4 K/mcL (1.6-8.9); Platelet Count 357 K/mcL (140-400); Red Cell Distribution Width 19.1 % (11.5-14.5); Segmented Neutrophils % 75.4 %; White Blood Count 9.8 K/mcL (4.3-11.1)
[2021-10-01 07:14] LABS: BUN/Creatinine Ratio 24 (6-26); Blood Urea Nitrogen 20 mg/dL (8-23); Calcium 8.5 mg/dL (8.6-10.3); Carbon Dioxide 28 mEq/L (23-29); Chloride 105 mEq/L (98-107); Glucose 92 mg/dL (70-105); Osmolality,Calculated 292 (280-300); Potassium 3.9 mEq/L (3.5-5.1); Sodium 140 mEq/L (136-145); eGFR For African Americans > 60 (> 60); eGFR For Non-African Americans > 60 (> 60)
[2021-10-01] MEDS: Megestrol Acetate 400 MG/10 ML UDC PO SCH (09:26)
[2021-10-01] MEDS: Gabapentin 100 MG CAPSULE PO SCH ×3 (09:26→23:21)
[2021-10-01] MEDS: Multivit/Ca/Min/Fe/FA 1 TAB TABLET PO SCH (09:27)
[2021-10-01] MEDS: Magnesium Oxide 400 MG TABLET PO SCH (09:27)
[2021-10-01] MEDS: Furosemide 20 MG TABLET PO SCH (09:27)
[2021-10-01] MEDS: Aspirin Enteric Coated 81 MG Tablet PO SCH (09:27)
[2021-10-01] MEDS: Nystatin POWDER 30 GM BOTTLE TP SCH ×2 (09:27→23:22)
[2021-10-01] MEDS: Mirabegron [Myrbetriq] 50 MG Tab.Er.24h PO SCH (09:27)
[2021-10-01] MEDS: DilTIAZem CD (24hr) 120 MG CAP.ER.24H PO SCH (09:27)
[2021-10-01] MEDS: Budesonide/Formoterol 80/4.5 1 PUFF INH IH SCH ×2 (09:38→21:17)
[2021-10-01] MEDS: Lactobacillus 1 EACH CAP.SPRINK PO SCH (23:21)
[2021-10-01] MEDS: Melatonin 3 MG TABLET PO SCH (23:21)
[2021-10-01] MEDS: Mirtazapine 15 MG TABLET PO SCH (23:21)
[2021-10-02] MEDS: *HR* Enoxaparin 40 MG/0.4 ML SYRINGE SQ SCH (05:05)
[2021-10-02 07:03] LABS: Basophils % 0.3 %; Eosinophils # 0.2 K/mcL (0.0-0.6); Eosinophils % 2.1 %; Hematocrit 25.4 % (35.3-44.9); Hemoglobin 7.7 g/dL (11.5-15.4); Immature Granulocytes % 0.4 % (0-4); Lymphocytes % 21.6 %; Mean Corpuscular HGB Conc 30.3 g/dL (31.6-35.5); Mean Corpuscular Volume 82.5 fL (83.0-100.0); Mean Platelet Volume 9.8 fL (9.4-12.4); Monocytes # 0.6 K/mcL (0.0-1.3); Monocytes % 6.8 %; Neutrophils # 6.4 K/mcL (1.6-8.9); Platelet Count 408 K/mcL (140-400); Red Blood Count 3.08 M/mcL (3.82-4.97); Red Cell Distribution Width 19.1 % (11.5-14.5); Segmented Neutrophils % 68.8 %; White Blood Count 9.3 K/mcL (4.3-11.1)
[2021-10-02 07:25] LABS: BUN/Creatinine Ratio 27 (6-26); Blood Urea Nitrogen 18 mg/dL (8-23); Calcium 8.2 mg/dL (8.6-10.3); Carbon Dioxide 25 mEq/L (23-29); Chloride 107 mEq/L (98-107); Glucose 74 mg/dL (70-105); Osmolality,Calculated 293 (280-300); Sodium 141 mEq/L (136-145); eGFR For African Americans > 60 (> 60); eGFR For Non-African Americans > 60 (> 60)
[2021-10-02] MEDS: Lactobacillus 1 EACH CAP.SPRINK PO SCH ×2 (08:57→19:39)
[2021-10-02] MEDS: Furosemide 20 MG TABLET PO SCH (08:57)
[2021-10-02] MEDS: Multivit/Ca/Min/Fe/FA 1 TAB TABLET PO SCH (08:57)
[2021-10-02] MEDS: Gabapentin 100 MG CAPSULE PO SCH ×3 (08:57→19:39)
[2021-10-02] MEDS: Megestrol Acetate 400 MG/10 ML UDC PO SCH (08:57)
[2021-10-02] MEDS: Magnesium Oxide 400 MG TABLET PO SCH (08:57)
[2021-10-02] MEDS: Aspirin Enteric Coated 81 MG Tablet PO SCH (08:57)
[2021-10-02] MEDS: DilTIAZem CD (24hr) 120 MG CAP.ER.24H PO SCH (08:57)
[2021-10-02] MEDS: Mirabegron [Myrbetriq] 50 MG Tab.Er.24h PO SCH (08:58)
[2021-10-02] MEDS: Nystatin POWDER 30 GM BOTTLE TP SCH ×2 (08:58→19:39)
[2021-10-02] MEDS: Budesonide/Formoterol 80/4.5 1 PUFF INH IH SCH ×2 (09:40→21:37)
[2021-10-02] MEDS ORDERED: Neosporin OINT 1 APPL PACKET TP ONE (18:26)
[2021-10-02] MEDS: Melatonin 3 MG TABLET PO SCH (19:39)
[2021-10-02] MEDS: Mirtazapine 15 MG TABLET PO SCH (19:39)
[2021-10-03] MEDS: *HR* Enoxaparin 40 MG/0.4 ML SYRINGE SQ SCH (06:21)
[2021-10-03] MEDS: Gabapentin 100 MG CAPSULE PO SCH ×3 (08:23→20:08)
[2021-10-03] MEDS: Furosemide 20 MG TABLET PO SCH (08:24)
[2021-10-03] MEDS: Lactobacillus 1 EACH CAP.SPRINK PO SCH ×2 (08:24→20:08)
[2021-10-03] MEDS: Megestrol Acetate 400 MG/10 ML UDC PO SCH (08:24)
[2021-10-03] MEDS: DilTIAZem CD (24hr) 120 MG CAP.ER.24H PO SCH (08:24)
[2021-10-03] MEDS: Magnesium Oxide 400 MG TABLET PO SCH (08:24)
[2021-10-03] MEDS: Nystatin POWDER 30 GM BOTTLE TP SCH ×2 (08:24→20:08)
[2021-10-03] MEDS: Multivit/Ca/Min/Fe/FA 1 TAB TABLET PO SCH (08:24)
[2021-10-03] MEDS: Mirabegron [Myrbetriq] 50 MG Tab.Er.24h PO SCH (08:24)
[2021-10-03] MEDS: Aspirin Enteric Coated 81 MG Tablet PO SCH (08:24)
[2021-10-03] MEDS: Budesonide/Formoterol 80/4.5 1 PUFF INH IH SCH ×2 (08:46→19:47)
[2021-10-03] MEDS: Mirtazapine 15 MG TABLET PO SCH (20:08)
[2021-10-03] MEDS: Melatonin 3 MG TABLET PO SCH (20:08)
[2021-10-04] MEDS: *HR* Enoxaparin 40 MG/0.4 ML SYRINGE SQ SCH (06:25)
[2021-10-04 07:12] LABS: Basophils % 0.3 %; Eosinophils # 0.3 K/mcL (0.0-0.6); Eosinophils % 2.9 %; Hematocrit 27.8 % (35.3-44.9); Hemoglobin 8.2 g/dL (11.5-15.4); Immature Granulocytes % 0.7 % (0-4); Lymphocytes % 21.9 %; Mean Corpuscular HGB Conc 29.5 g/dL (31.6-35.5); Mean Corpuscular Hemoglobin 24.3 pg (28.0-33.3); Mean Corpuscular Volume 82.2 fL (83.0-100.0); Mean Platelet Volume 9.2 fL (9.4-12.4); Monocytes # 0.6 K/mcL (0.0-1.3); Monocytes % 6.7 %; Neutrophils # 6.1 K/mcL (1.6-8.9); Platelet Count 383 K/mcL (140-400); Red Blood Count 3.38 M/mcL (3.82-4.97); Red Cell Distribution Width 19.4 % (11.5-14.5); Segmented Neutrophils % 67.5 %; White Blood Count 9.1 K/mcL (4.3-11.1)
[2021-10-04 07:29] LABS: BUN/Creatinine Ratio 19 (6-26); Blood Urea Nitrogen 13 mg/dL (8-23); Calcium 8.3 mg/dL (8.6-10.3); Carbon Dioxide 27 mEq/L (23-29); Chloride 108 mEq/L (98-107); Glucose 87 mg/dL (70-105); Osmolality,Calculated 291 (280-300); Potassium 4.3 mEq/L (3.5-5.1); Sodium 141 mEq/L (136-145); eGFR For African Americans > 60 (> 60); eGFR For Non-African Americans > 60 (> 60)
[2021-10-04] MEDS: Budesonide/Formoterol 80/4.5 1 PUFF INH IH SCH ×2 (08:16→22:40)
[2021-10-04] MEDS: Multivit/Ca/Min/Fe/FA 1 TAB TABLET PO SCH (09:01)
[2021-10-04] MEDS: Gabapentin 100 MG CAPSULE PO SCH ×3 (09:02→20:11)
[2021-10-04] MEDS: Magnesium Oxide 400 MG TABLET PO SCH (09:02)
[2021-10-04] MEDS: Lactobacillus 1 EACH CAP.SPRINK PO SCH ×2 (09:02→20:10)
[2021-10-04] MEDS: Aspirin Enteric Coated 81 MG Tablet PO SCH (09:02)
[2021-10-04] MEDS: DilTIAZem CD (24hr) 120 MG CAP.ER.24H PO SCH (09:02)
[2021-10-04] MEDS: Furosemide 20 MG TABLET PO SCH (09:03)
[2021-10-04] MEDS: Megestrol Acetate 400 MG/10 ML UDC PO SCH (09:03)
[2021-10-04] MEDS: Nystatin POWDER 30 GM BOTTLE TP SCH ×2 (09:04→20:12)
[2021-10-04] MEDS: Mirabegron [Myrbetriq] 50 MG Tab.Er.24h PO SCH (09:06)
[2021-10-04] MEDS: Melatonin 3 MG TABLET PO SCH (20:10)
[2021-10-04] MEDS: Mirtazapine 15 MG TABLET PO SCH (20:11)
[2021-10-04] MEDS: Eucerin Cream 57 GM TUBE TP SCH (20:11)
[2021-10-05] MEDS: *HR* Enoxaparin 40 MG/0.4 ML SYRINGE SQ SCH (06:09)
[2021-10-05] MEDS: Megestrol Acetate 400 MG/10 ML UDC PO SCH (09:40)
[2021-10-05] MEDS: Gabapentin 100 MG CAPSULE PO SCH ×3 (09:41→20:18)
[2021-10-05] MEDS: Multivit/Ca/Min/Fe/FA 1 TAB TABLET PO SCH (09:41)
[2021-10-05] MEDS: DilTIAZem CD (24hr) 120 MG CAP.ER.24H PO SCH (09:41)
[2021-10-05] MEDS: Magnesium Oxide 400 MG TABLET PO SCH (09:41)
[2021-10-05] MEDS: Aspirin Enteric Coated 81 MG Tablet PO SCH (09:41)
[2021-10-05] MEDS: Lactobacillus 1 EACH CAP.SPRINK PO SCH ×2 (09:41→20:17)
[2021-10-05] MEDS: Eucerin Cream 57 GM TUBE TP SCH ×2 (09:42→20:17)
[2021-10-05] MEDS: Mirabegron [Myrbetriq] 50 MG Tab.Er.24h PO SCH (09:42)
[2021-10-05] MEDS: Nystatin POWDER 30 GM BOTTLE TP SCH ×2 (09:42→20:18)
[2021-10-05] MEDS: Furosemide 20 MG TABLET PO SCH (09:42)
[2021-10-05] MEDS: Budesonide/Formoterol 80/4.5 1 PUFF INH IH SCH ×2 (09:56→21:29)
[2021-10-05] MEDS: Melatonin 3 MG TABLET PO SCH (20:18)
[2021-10-05] MEDS: Mirtazapine 15 MG TABLET PO SCH (20:18)
[2021-10-06] MEDS: *HR* Enoxaparin 40 MG/0.4 ML SYRINGE SQ SCH (05:51)
[2021-10-06] MEDS: Budesonide/Formoterol 80/4.5 1 PUFF INH IH SCH ×2 (08:17→21:10)
[2021-10-06] MEDS: Magnesium Oxide 400 MG TABLET PO SCH (10:54)
[2021-10-06] MEDS: Multivit/Ca/Min/Fe/FA 1 TAB TABLET PO SCH (10:54)
[2021-10-06] MEDS: Lactobacillus 1 EACH CAP.SPRINK PO SCH ×2 (10:54→20:01)
[2021-10-06] MEDS: Aspirin Enteric Coated 81 MG Tablet PO SCH (10:54)
[2021-10-06] MEDS: Megestrol Acetate 400 MG/10 ML UDC PO SCH (10:54)
[2021-10-06] MEDS: DilTIAZem CD (24hr) 120 MG CAP.ER.24H PO SCH (10:54)
[2021-10-06] MEDS: Eucerin Cream 57 GM TUBE TP SCH ×2 (10:55→20:02)
[2021-10-06] MEDS: Gabapentin 100 MG CAPSULE PO SCH ×3 (10:55→20:01)
[2021-10-06] MEDS: Furosemide 20 MG TABLET PO SCH (10:55)
[2021-10-06] MEDS: Mirabegron [Myrbetriq] 50 MG Tab.Er.24h PO SCH (10:57)
[2021-10-06] MEDS: Nystatin POWDER 30 GM BOTTLE TP SCH ×2 (10:57→20:03)
[2021-10-06 17:18] LABS: Adenovirus F 40/41 PCR Not detected (Not detect); Astrovirus PCR Not detected (Not detect); C.difficile Toxin A/B Gene PCR Not detected (Not detect); Campylobacter by PCR Not detected (Not detect); Cryptosporidium by PCR Not detected (Not detect); Cyclospora cayetanensis PCR Not detected (Not detect); Entamoeba histolytica PCR Not detected (Not detect); Enteroaggregative E.coli(EAEC) Not detected (Not detect); Enteropathogenic E.coli(EPEC) Not detected (Not detect); Enterotoxigenic E.coli (ETEC) Not detected (Not detect); Giardia lamblia PCR Not detected (Not detect); Norovirus GI/GII PCR Not detected (Not detect); Plesiomonas shigelloides PCR Not detected (Not detect); Rotavirus A PCR Not detected (Not detect); Salmonella PCR Not detected (Not detect); Sapovirus PCR Not detected (Not detect); Shig/EnteroinvasiveE coli EIEC Not detected (Not detect); Shigalike tox-prod E coli STEC Not detected (Not detect); Vibrio PCR Not detected (Not detect); Vibrio cholerae PCR Not detected (Not detect); Yersinia enterocolitica PCR Not detected (Not detect)
[2021-10-06] MEDS: Mirtazapine 15 MG TABLET PO SCH (20:01)
[2021-10-06] MEDS: Melatonin 3 MG TABLET PO SCH (21:05)
[2021-10-07] MEDS: *HR* Enoxaparin 40 MG/0.4 ML SYRINGE SQ SCH (05:52)
[2021-10-07] MEDS: Budesonide/Formoterol 80/4.5 1 PUFF INH IH SCH ×2 (08:03→20:43)
[2021-10-07] MEDS: Lactobacillus 1 EACH CAP.SPRINK PO SCH ×2 (09:26→19:48)
[2021-10-07] MEDS: Aspirin Enteric Coated 81 MG Tablet PO SCH (09:26)
[2021-10-07] MEDS: Multivit/Ca/Min/Fe/FA 1 TAB TABLET PO SCH (09:26)
[2021-10-07] MEDS: Gabapentin 100 MG CAPSULE PO SCH ×3 (09:26→19:48)
[2021-10-07] MEDS: Furosemide 20 MG TABLET PO SCH (09:26)
[2021-10-07] MEDS: Eucerin Cream 57 GM TUBE TP SCH ×2 (09:26→19:52)
[2021-10-07] MEDS: Megestrol Acetate 400 MG/10 ML UDC PO SCH (09:26)
[2021-10-07] MEDS: DilTIAZem CD (24hr) 120 MG CAP.ER.24H PO SCH (09:26)
[2021-10-07] MEDS: Magnesium Oxide 400 MG TABLET PO SCH (09:26)
[2021-10-07] MEDS: Mirabegron [Myrbetriq] 50 MG Tab.Er.24h PO SCH (09:27)
[2021-10-07] MEDS: Nystatin POWDER 30 GM BOTTLE TP SCH ×2 (09:27→19:52)
[2021-10-07] MEDS: Acetaminophen 325 MG TABLET PO PRN (19:47)
[2021-10-07] MEDS: Mirtazapine 15 MG TABLET PO SCH (19:48)
[2021-10-07] MEDS: Melatonin 3 MG TABLET PO SCH (21:13)
[2021-10-08] MEDS: *HR* Enoxaparin 40 MG/0.4 ML SYRINGE SQ SCH (05:39)
[2021-10-08] MEDS: Furosemide 20 MG TABLET PO SCH (07:44)
[2021-10-08] MEDS: Lactobacillus 1 EACH CAP.SPRINK PO SCH ×2 (07:44→19:48)
[2021-10-08] MEDS: Megestrol Acetate 400 MG/10 ML UDC PO SCH (07:44)
[2021-10-08] MEDS: Gabapentin 100 MG CAPSULE PO SCH ×3 (07:44→19:49)
[2021-10-08] MEDS: Mirabegron [Myrbetriq] 50 MG Tab.Er.24h PO SCH (07:45)
[2021-10-08] MEDS: Aspirin Enteric Coated 81 MG Tablet PO SCH (07:45)
[2021-10-08] MEDS: Multivit/Ca/Min/Fe/FA 1 TAB TABLET PO SCH (07:45)
[2021-10-08] MEDS: Magnesium Oxide 400 MG TABLET PO SCH (07:45)
[2021-10-08] MEDS: DilTIAZem CD (24hr) 120 MG CAP.ER.24H PO SCH (07:45)
[2021-10-08] MEDS: Eucerin Cream 57 GM TUBE TP SCH ×2 (07:46→19:50)
[2021-10-08] MEDS: Nystatin POWDER 30 GM BOTTLE TP SCH ×2 (07:46→19:50)
[2021-10-08] MEDS: Budesonide/Formoterol 80/4.5 1 PUFF INH IH SCH ×2 (09:08→21:58)
[2021-10-08] MEDS: Mirtazapine 15 MG TABLET PO SCH (19:48)
[2021-10-08] MEDS: Melatonin 3 MG TABLET PO SCH (19:49)
[2021-10-09] MEDS: *HR* Enoxaparin 40 MG/0.4 ML SYRINGE SQ SCH (06:24)
[2021-10-09] MEDS: Budesonide/Formoterol 80/4.5 1 PUFF INH IH SCH ×2 (08:42→22:14)
[2021-10-09] MEDS: Multivit/Ca/Min/Fe/FA 1 TAB TABLET PO SCH (09:32)
[2021-10-09] MEDS: Aspirin Enteric Coated 81 MG Tablet PO SCH (09:32)
[2021-10-09] MEDS: Magnesium Oxide 400 MG TABLET PO SCH (09:32)
[2021-10-09] MEDS: Gabapentin 100 MG CAPSULE PO SCH ×3 (09:32→20:06)
[2021-10-09] MEDS: Lactobacillus 1 EACH CAP.SPRINK PO SCH ×2 (09:32→20:08)
[2021-10-09] MEDS: Megestrol Acetate 400 MG/10 ML UDC PO SCH (09:32)
[2021-10-09] MEDS: DilTIAZem CD (24hr) 120 MG CAP.ER.24H PO SCH (09:32)
[2021-10-09] MEDS: Furosemide 20 MG TABLET PO SCH (09:32)
[2021-10-09] MEDS: Mirabegron [Myrbetriq] 50 MG Tab.Er.24h PO SCH (09:33)
[2021-10-09] MEDS: Eucerin Cream 57 GM TUBE TP SCH ×2 (09:41→20:08)
[2021-10-09] MEDS: Nystatin POWDER 30 GM BOTTLE TP SCH (13:08)
[2021-10-09] MEDS: Mirtazapine 15 MG TABLET PO SCH (20:05)
[2021-10-09] MEDS: Melatonin 3 MG TABLET PO SCH (21:08)
[2021-10-09 22:19] VITALS: RESP 16
[2021-10-10] MEDS: *HR* Enoxaparin 40 MG/0.4 ML SYRINGE SQ SCH (05:37)
[2021-10-10] MEDS: Megestrol Acetate 400 MG/10 ML UDC PO SCH (08:22)
[2021-10-10] MEDS: Lactobacillus 1 EACH CAP.SPRINK PO SCH ×2 (08:22→20:15)
[2021-10-10] MEDS: Aspirin Enteric Coated 81 MG Tablet PO SCH (08:22)
[2021-10-10] MEDS: Magnesium Oxide 400 MG TABLET PO SCH (08:22)
[2021-10-10] MEDS: DilTIAZem CD (24hr) 120 MG CAP.ER.24H PO SCH (08:23)
[2021-10-10] MEDS: Gabapentin 100 MG CAPSULE PO SCH ×3 (08:23→20:15)
[2021-10-10] MEDS: Multivit/Ca/Min/Fe/FA 1 TAB TABLET PO SCH (08:23)
[2021-10-10] MEDS: Mirabegron [Myrbetriq] 50 MG Tab.Er.24h PO SCH (08:23)
[2021-10-10] MEDS: Eucerin Cream 57 GM TUBE TP SCH ×2 (08:23→20:16)
[2021-10-10] MEDS: Furosemide 20 MG TABLET PO SCH (08:23)
[2021-10-10] MEDS: Budesonide/Formoterol 80/4.5 1 PUFF INH IH SCH ×2 (09:16→22:14)
[2021-10-10] MEDS: Mirtazapine 15 MG TABLET PO SCH (20:15)
[2021-10-10] MEDS: Melatonin 3 MG TABLET PO SCH (20:16)
[2021-10-11] MEDS: *HR* Enoxaparin 40 MG/0.4 ML SYRINGE SQ SCH (05:30)
[2021-10-11 06:51] VITALS: BP 128/55; PULSE 70; TEMP 99.3; O2SAT 93
[2021-10-11] MEDS: Budesonide/Formoterol 80/4.5 1 PUFF INH IH SCH (09:15)
[2021-10-11] MEDS: Lactobacillus 1 EACH CAP.SPRINK PO SCH (10:26)
[2021-10-11] MEDS: Magnesium Oxide 400 MG TABLET PO SCH (10:27)
[2021-10-11] MEDS: Aspirin Enteric Coated 81 MG Tablet PO SCH (10:27)
[2021-10-11] MEDS: Furosemide 20 MG TABLET PO SCH (10:27)
[2021-10-11] MEDS: Megestrol Acetate 400 MG/10 ML UDC PO SCH (10:27)
[2021-10-11] MEDS: Gabapentin 100 MG CAPSULE PO SCH (10:27)
[2021-10-11] MEDS: DilTIAZem CD (24hr) 120 MG CAP.ER.24H PO SCH (10:27)
[2021-10-11] MEDS: Multivit/Ca/Min/Fe/FA 1 TAB TABLET PO SCH (10:27)
[2021-10-11] MEDS: Mirabegron [Myrbetriq] 50 MG Tab.Er.24h PO SCH (10:28)
[2021-10-11] MEDS: Eucerin Cream 57 GM TUBE TP SCH (10:28)
[2021-10-11 11:14] LABS: Influenza A PCR Negative (Negative); Influenza B PCR Negative (Negative); Resp. Syncytial Virus PCR Negative (Negative)
[2021-10-11 11:15] LABS: SARS-CoV-2 by PCR (In House) Negative (Negative)
== END 2021-10-11 03:40 | DRG 177 ==
LOC: INPPIK 20:56 → SUATTDRO 20:56 → INPPIK 09-30 18:53
PROVIDERS: ADMIT Internal Medicine; ATTEND Family Medicine